=== PATIENT | male | born 1960 | race Caucasian/White ===

== ENCOUNTER 2016-09-15 19:46 | Inpatient (IN) | payer MEDICARE ==
--- NOTE | ~2016-09-15 | PA ---
Unit #: [id number] #: [id number] Patient: JUDAH HICKS [id number] [facility] [address] [place] [address] [id number] MR#: [id number] NAME: JUDAH HICKS ROOM: P201 Age: 56 Sex: M Admission Date: 09/15/2016 : 1960 Date of Assessment: Attending Physician: Wilder Calles M.D. Admitting Physician: Wilder Calles M.D. Primary Care Physician: Erik Doctor Not In System PSYCHIATRIC ASSESSMENT DATE OF SERVICE 09/16/2016. IDENTIFYING DATA Mr. Hicks is a 56-year-old single disabled white male, who is a resident of [place], [place], and was self-referred to the hospital on a voluntary basis with a blood alcohol level of 0.086. CHIEF COMPLAINT "I relapsed on alcohol." HISTORY OF PRESENT ILLNESS Mr. Hicks is a 56-year-old white male, who was self-referred to the hospital intoxicated and stated that he relapsed on alcohol and that he had drank three cases of beer in the past 2 days and reports that he is depressed and anxious and has been having suicidal thoughts and has a plan to overdose on his prescription medications. He reports that he is on disability due to mental health issues and has been at [facility] in [place] for the past 7 months until yesterday and reports that he is now homeless following the relapse and that he is struggling since the of his father and his sister and has poor social support system, multiple health problems, and fixed income and reports that he has a history of complicated detox in the past and therefore, he did not want to take any chance. He does report increasing depression, anxiety, restlessness, feelings of hopelessness and helplessness, poor energy level, psychomotor retardation, and suicidal ideation with a plan to overdose on alcohol and prescription medication as he stated "I want to drink myself to at this time and I have the pills to back that up." He was seen to be a danger to self and as such, a recommendation for inpatient level of care was made and the patient was transferred to us. SUBSTANCE ABUSE HISTORY The patient reports history of alcohol dependence and reports that he has been drinking a case of beer a day and has been drinking since he was 9 years old. He denies any other drug abuse. PAST PSYCHIATRIC HISTORY The patient has had a history of chemical dependency treatment across different facilities including at [facility], at [facility] twice, at [facility], as well as at [facility] and other facilities and currently has been living in a [facility] for the last 7 months and now he describes himself to be homeless. Unit #: [id number] #: [id number] Patient: JUDAH HICKS PAST MEDICAL HISTORY The patient's medical history is significant for hypertension, history of withdrawal seizures, neuropathy, and dyslipidemia. ALLERGIES No known medication allergies. PERSONAL AND SOCIAL HISTORY A 56-year-old white male, who reports that he is single, unemployed, and essentially homeless and has poor social support system. MENTAL STATUS EXAMINATION Middle-aged white male, who was casually dressed with fair personal hygiene, appears to be in no acute distress or discomfort. He was awake and alert on interaction with intact orientation to time, place, and person. His mood was anxious and depressed with a congruent affect. His speech was slow and restricted in content. His thought processes were disorganized with some looseness of associations and flight of ideas and suicidal ideations. His insight and judgment remain significantly impaired. DIAGNOSTIC IMPRESSION Psychiatric: Major depressive disorder, recurrent, moderate, without psychotic features and alcohol dependence, moderate, in acute withdrawals. Medical: Hypertension, history of withdrawal seizures, neuropathy, and dyslipidemia. Stressors: Moderate psychosocial stressors. TREATMENT PLAN 1. The patient has presented with a history of mood disorder and substance abuse and has been decompensating and will need inpatient hospitalization for detoxification, safety, and stabilization. We will start him back on his home medications and detox protocol. We will closely monitor for any worsening withdrawal symptoms. 2. Supportive therapy was provided to the patient. 3. Safe, structured, and nourishing environment will be provided. ESTIMATED LENGTH OF STAY 5 to 7 days. ABILITY TO HELP SELF Limited. WILLINGNESS TO HELP SELF The patient appears to be willing to help self. STRENGTHS 1. Communicative. 2. Cooperative. PROBLEMS 1. Chronic dysphoric symptoms. 2. Chronic chemical dependency. DISCHARGE CRITERIA This will be contingent upon the patient's ability to show resolution of his depression and anxiety and his ability to go through detox without having any significant withdrawal symptoms and his ability to stay safe to Unit #: [id number] #: [id number] Patient: JUDAH HICKS himself and others, particularly after discharge from the hospital. Dictated by... Daphney Zhao/cristobal TD: 09/16/2016 14:27 JOB #: [id number] PSYCHIATRIC ASSESSMENT X Wilder Calles MD PSYCHIATRIC ASSESSMENT
--- NOTE | ~2016-09-15 | DS ---
Unit #: [id number] #: [id number] Patient: JUDAH HICKS [id number] [facility] [address] [place] [address] [id number] I MR#: [id number] NAME: JUDAH HICKS ROOM: P201 Age: 56 Sex: M Admission Date: 09/15/2016 : 1960 Discharge Date: 09/25/2016 Attending Physician: Wilder Calles M.D. Primary Care Physician: Generic Doctor Not In System DISCHARGE SUMMARY IDENTIFYING DATA Mr. Hicks is a 56-year-old single disabled white male, who is a resident of [place], [place], and was self-referred to the hospital on a voluntary basis with a blood alcohol level of 0.086. DISCHARGE DIAGNOSES Psychiatric: Major depressive disorder, recurrent, moderate, without psychotic features; alcohol dependence, moderate and acute withdrawals. Medical: Hypertension, history of withdrawal seizures, neuropathy, dyslipidemia. Stressors: Moderate psychosocial stressors. HISTORY OF PRESENT ILLNESS Please see initial psychiatric evaluation for details. PAST PSYCHIATRIC HISTORY Please see initial psychiatric evaluation for details. PAST MEDICAL HISTORY Please see initial psychiatric evaluation for details. HOSPITAL COURSE The patient was admitted to the adult chemical dependency and psychiatric unit at [facility] and was oriented to the hospital environment. Routine p.r.n. medications were initiated, and he was started back on his home medications and alcohol detox protocol was initiated as well. He was seen to be anxious, withdrawn, though was polite and pleasant and cooperative with treatment recommendation and was taking the medications regularly and was tolerating them fairly well and was able to show a decent and therapeutic response and initially was interested in going to long-term chemical dependency rehab program and referral to [facility] in [place] was made, but he was not accepted there and then he decided that he just wants to go back to his detention house and wants to do intensive outpatient treatment program and as such, it was decided that he will be discharged home and will continue treatment on an outpatient basis. DISCHARGE MEDICATIONS BuSpar 15 mg t.i.d. for anxiety, Protonix 40 mg a day for acid reflux, Lipitor 20 mg at bedtime for dyslipidemia, Neurontin 600 mg t.i.d. for neuropathy, Zyprexa 2.5 mg b.i.d. for mood depression, Lexapro 20 mg a day for depression, Norvasc 5 mg a day for hypertension, Oretic 12.5 mg a day for hypertension. DISCHARGE CONDITION Unit #: [id number] #: [id number] Patient: JUDAH HICKS. PROGNOSIS Fair. Dictated by... Daphney Zhao/cristobal TD: 09/25/2016 07:42 JOB #: [id number] DISCHARGE SUMMARY Page 1 of 1 X Wilder Calles MD X DISCHARGE SUMMARY
--- NOTE | ~2016-09-15 | PN ---
Unit #: [id number] #: [id number] Patient: JUDAH HICKS [id number] [facility] [address] [place] [address] [id number] I MR#: [id number] NAME: JUDAH HICKS ROOM: P201 Age: 56 Sex: M Admission Date: 09/15/2016 : 1960 Attending Physician: Wilder Calles M.D. Admitting Physician: Wilder Calles M.D. Primary Care Physician: Erik Doctor Not In System [facility] PROGRESS NOTES DATE OF SERVICE: 09/17/2016 SUBJECTIVE Mr. Hicks is a 56-year-old white male who was seen today and chart was reviewed, and case was discussed with the staff. He has been anxious, withdrawn, and rather seclusive to himself. Meanwhile, he has been cooperative with treatment recommendation. He has been taking the medications and tolerating them fairly well with no reported side effects. MENTAL STATUS EXAMINATION Middle-aged white male who was casually dressed with fair personal hygiene, appears to be in no acute distress or discomfort. He was awake and alert on interaction with intact orientation. His mood was anxious with a congruent affect. He denies any suicidal or homicidal ideations. His insight and judgment remain slightly impaired. TREATMENT PLAN We will continue him on his current treatment protocol. We will monitor his response. Dictated by... Daphney Zhao/cristobal TD: 09/18/2016 01:31 JOB #: [id number] [facility] PROGRESS NOTES Page 1 of 1 X Wilder Calles MD PROGRESS NOTE
--- NOTE | ~2016-09-15 | PN ---
Unit #: [id number] #: [id number] Patient: JUDAH HICKS [id number] [facility] [address] [place] [address] [id number] MR#: [id number] NAME: JUDAH HICKS ROOM: P201 Age: 56 Sex: M Admission Date: 09/15/2016 : 1960 Attending Physician: Wilder Calles M.D. Admitting Physician: Wilder Calles M.D. Primary Care Physician: Generic Doctor Not In System [facility] PROGRESS NOTES DATE OF SERVICE 09/20/2016 DISCUSSION Mr. Hicks is a 56-year-old white male who was seen today. Chart was reviewed and case was discussed with the staff who reports the patient has been doing fairly well with no agitation or irritability and has been calm and cooperative with treatment recommendation and has been trying to get into long-term rehab level of care and has been referred to [facility] in [place] for long-term chemical dependence rehab level of care, and he reports that if he gets accepted he will be willing to go there. MENTAL STATUS EXAMINATION Middle-aged white male who is casually dressed with fair personal hygiene, appears to be in no acute distress or discomfort. He was awake and alert on interaction with intact orientation. His mood is anxious with congruent affect. His speech is slow and restricted in content. His thought processes were disorganized with some looseness of associations. His insight and judgment remain slightly impaired. TREATMENT PLAN 1. We will continue him on his current medications and treatment protocol. We will monitor his response to the medications and make further adjustments as needed. 2. We will continue to follow up. Dictated by... Daphney Zhao/girish TD: 09/21/2016 07:22 JOB #: [id number] Unit #: [id number] #: [id number] Patient: JUDAH HICKS PROGRESS NOTES Page 1 of 1 X Wilder Calles MD PROGRESS NOTE
--- NOTE | ~2016-09-15 | PN ---
Unit #: [id number] #: [id number] Patient: JUDAH HICKS [id number] [facility] [address] [place] [address] [id number] I MR#: [id number] NAME: JUDAH HICKS ROOM: P201 Age: 56 Sex: M Admission Date: 09/15/2016 : 1960 Attending Physician: Wilder Calles M.D. Admitting Physician: Wilder Calles M.D. Primary Care Physician: Erik Doctor Not In System [facility] PROGRESS NOTES DATE OF SERVICE: 09/24/2016 SUBJECTIVE Mr. Hicks is a 56-year-old white male who was seen today and chart was reviewed, and case was discussed with the staff. He has been anxious, withdrawn, though has not shown any agitation or irritability, and he has been cooperative with treatment recommendations as he has been taking medications and tolerating them fairly well with no reported side effects. MENTAL STATUS EXAMINATION Middle-aged white male who was casually dressed with fair personal hygiene, appears to be in no acute distress or discomfort. He was awake and alert with impaired attention and concentration. His mood was anxious with a congruent affect. He denies any suicidal or homicidal ideations. His insight and judgment remain fairly intact. TREATMENT PLAN 1. We will continue him on his current medications and treatment protocol. We will consider doing discharge planning tomorrow. 2. We will continue to follow up. Dictated by... Daphney Zhao/terryl TD: 09/24/2016 21:39 JOB #: [id number] [facility] PROGRESS NOTES Page 1 of 1 X Wilder Calles MD PROGRESS NOTE
--- NOTE | ~2016-09-15 | PN ---
Unit #: [id number] #: [id number] Patient: JUDAH HICKS [id number] [facility] [address] [place] [address] [id number] MR#: [id number] NAME: JUDAH HICKS ROOM: P201 Age: 56 Sex: M Admission Date: 09/15/2016 : 1960 Attending Physician: Wilder Calles M.D. Admitting Physician: Wilder Calles M.D. Primary Care Physician: Generic Doctor Not In System [facility] PROGRESS NOTES DATE 09/19/2016 DISCUSSION Mr. Hicks is a 56-year-old, white male who was seen today and chart was reviewed and case was discussed with the staff. He has been anxious, withdrawn and rather seclusive to himself. He has been cooperative with the treatment recommendations. He has been taking the medication and tolerating them fairly well. MENTAL STATUS EXAM Middle-aged Young white male who was casually dressed with fair personal hygiene, appears to be in no acute distress or discomfort. He was awake and alert on interaction with intact orientation. His mood was anxious with congruent affect. His speech was slow and goal directed. He denies any suicidal or homicidal ideation. Also, denies any auditory or visual hallucinations. His insight and judgement remains slightly impaired. TREATMENT PLAN 1. We will continue him on his current medications and treatment protocol. We will monitor his response to the medication and make further adjustments as needed. 2. We will continue to follow up. Dictated by... Daphney Zhao/pete TD: 09/20/2016 02:08 JOB #: [id number] Unit #: [id number] #: [id number] Patient: JUDAH HICKS PROGRESS NOTES Page 1 of 1 X Wilder Calles MD PROGRESS NOTE
--- NOTE | ~2016-09-15 | HP ---
Unit #: [id number] #: [id number] Patient: JUDAH HICKS [id number] [facility] [address] [place] [address] [id number] I MR#: [id number] NAME: JUDAH HICKS ROOM: P201 Age: 56 Sex: M Admission Date: 09/15/2016 : 1960 Attending Physician: Wilder Calles M.D. Admitting Physician: Wilder Calles M.D. Primary Care Physician: Erik Doctor Not In System HISTORY AND PHYSICAL History and physical completed on 09/16/2016. HISTORY OF PRESENT ILLNESS Judah is a 56-year-old male, admitted on 09/15/[address] [place] [address] for detox from alcohol. PAST MEDICAL HISTORY 1. Obesity. 2. Hypertension. 3. Gastroesophageal reflux disease. 4. Peripheral neuropathy. 5. Hyperlipidemia. 6. History of withdrawal seizures. PAST SURGICAL HISTORY None documented. SOCIAL HISTORY He smokes one pack of cigarettes daily. He drinks a case of beer daily, no illegal drug use. He is currently single and homeless. FAMILY HISTORY Noncontributory. REVIEW OF SYSTEMS CONSTITUTIONAL: No fever or chills. HEENT: Denies any sore throat, ear pain or runny nose. CARDIOVASCULAR: Denies chest pain, irregular heart rhythm or palpitations. CHEST: Denies shortness of breath or cough. No hemoptysis. GASTROINTESTINAL: Denies nausea, vomiting, diarrhea or chronic constipation. ENDOCRINE: Denies history of increased thirst or urination. No recent significant weight loss or gain. GENITOURINARY: Denies dysuria, frequency, or hematuria. SKIN: Denies any rashes. HEMATOLOGIC: Denies history of increased bleeding or bruising. MUSCULOSKELETAL: Denies any hot, swollen joints. No generalized muscle pain. NEUROLOGIC: Denies problems with vision or speech. No frequent, severe headaches. No numbness, tingling or weakness in any extremities. Denies loss of bladder or bowel control. CURRENT MEDICATIONS Unit #: [id number] #: [id number] Patient: JUDAH HICKS 1. Tizanidine 2. BuSpar 3. Omeprazole 4. Escitalopram 5. Losartan/HCTZ 6. Atorvastatin 7. Neurontin 8. Olanzapine ALLERGIES No known drug allergies. PHYSICAL EXAMINATION GENERAL: Alert, oriented, and in no acute distress. VITAL SIGNS: Blood pressure 156/87, heart rate 103, temperature 98.0. HEIGHT: 5 feet 6 inches. WEIGHT: 236 pounds. SKIN: Warm and dry without rash or lesion. HEENT: Normocephalic. TMs not viewed. Oral and nasal passages clear. Conjunctivae clear. PERRLA. EOMs intact. NECK: Supple without lymphadenopathy or thyromegaly. HEART: Regular rate and rhythm without murmur. LUNGS: Clear. ABDOMEN: Soft, nontender. : Not done. EXTREMITIES: No evidence of cyanosis, clubbing or edema. Moves all without focal deficit. NEUROLOGICAL: Grossly within normal limits. Cranial Nerves: II: Visual park are intact. III, IV AND : Extraocular movements are intact. Pupils are equal, round and reactive to light. V: Facial sensation is grossly normal. VII: Facial movements and expression are normal. VIII: Auditory acuity grossly intact. IX, X: Uvula is midline. Phonation is normal. XI: Patient shrugs shoulders and turns head normally. XII: Tongue protrudes in the midline. Sensory and Motor Function: Sensory and motor sensation is grossly normal. Motor: moves all extremities well. Coordination: Gait is normal. Deep Tendon Reflexes: Intact. IMPRESSION 1. Psychiatric admission. 2. Obesity. 3. Hypertension. 4. Gastroesophageal reflux disease. 5. Peripheral neuropathy. 6. Hyperlipidemia. 7. History of withdrawal seizures. RECOMMENDATIONS Psychiatric, per psychiatrist. MEDICAL I see no contraindications to participating in facility's activities. MEDICAL PROGNOSIS Good. MEDICAL CONDITION Unit #: [id number] #: [id number] Patient: JUDAH HICKS. Dictated by... Kylah Massey/gracia TD: 09/17/2016 08:08 JOB #: [id number] HISTORY AND PHYSICAL X FAINA TROY APRN X HISTORY AND PHYSICAL
--- NOTE | ~2016-09-15 | PN ---
Unit #: [id number] #: [id number] Patient: JUDAH HICKS [id number] [facility] [address] [place] [address] [id number] I MR#: [id number] NAME: JUDHA HICKS ROOM: P201 Age: 56 Sex: M Admission Date: 09/15/2016 : 1960 Attending Physician: Wilder Calles M.D. Admitting Physician: Wilder Calles M.D. Primary Care Physician: Generic Doctor Not In System [facility] PROGRESS NOTES DATE OF SERVICE: 09/23/2016 SUBJECTIVE Mr. Hicks is a 56-year-old white male who was seen today and chart was reviewed, and case was discussed with the staff. He has been doing fairly well outpatient treatment program after discharged from the hospital and continued treatment. MENTAL STATUS EXAMINATION Middle-aged white male who was casually dressed with fair personal hygiene, appears to be in no acute distress or discomfort. He was awake and alert with intact orientation. His mood was anxious with a congruent affect. He denies any suicidal or homicidal ideations. His insight and judgment remain fairly intact. TREATMENT PLAN 1. We will continue him on his current treatment protocol. We will monitor his response to medications and make further adjustments as needed. 2. We will continue to follow up. Dictated by... Daphney Zhao/terryl TD: 09/24/2016 21:50 JOB #: [id number] [facility] PROGRESS NOTES Page 1 of 1 X Wilder Calles MD PROGRESS NOTE
--- NOTE | ~2016-09-15 | PN ---
Unit #: [id number] #: [id number] Patient: JUDAH HICKS [id number] [facility] [address] [place] [address] [id number] I MR#: [id number] NAME: JUDAH HICKS ROOM: P201 Age: 56 Sex: M Admission Date: 09/15/2016 : 1960 Attending Physician: Wilder Calles M.D. Admitting Physician: Wilder Calles M.D. Primary Care Physician: Erik Doctor Not In System [facility] PROGRESS NOTES DATE 09/21/2016 DISCUSSION Mr. Hicks is a 56-year-old white male who was seen today and chart was reviewed and case was discussed with the staff. He has been anxious, withdrawn though has not shown any agitation, irritability and has been cooperative with treatment recommendations as he has taking medications and tolerating them fairly well with no reported side effects. MENTAL STATUS EXAMINATION Middle-aged white male who was casually dressed with fair personal hygiene and appears to be in no acute distress or discomfort. He was awake and alert with intact orientation. His mood was anxious with congruent affect. He denies any suicidal or homicidal ideations. His insight and judgement remains slightly impaired. TREATMENT PLAN 1. Will continue on his current medications and treatment protocol. Will monitor his response to the medications and make further adjustments as needed. 2. Will continue to follow up. Dictated by... Daphney Zhao/chris TD: 09/21/2016 18:02 JOB #: [id number] Unit #: [id number] #: [id number] Patient: JUDAH HICKS PROGRESS NOTES Page 1 of 1 X Wilder Calles MD X PROGRESS NOTE
--- NOTE | ~2016-09-15 | PN ---
Unit #: [id number] #: [id number] Patient: JUDAH HICKS [id number] [facility] [address] [place] [address] [id number] I MR#: [id number] NAME: JUDAH HICKS ROOM: P201 Age: 56 Sex: M Admission Date: 09/15/2016 : 1960 Attending Physician: Wilder Calles M.D. Admitting Physician: Wilder Calles M.D. Primary Care Physician: Generic Doctor Not In System [facility] PROGRESS NOTES DATE OF SERVICE 09/18/2016 DISCUSSION Mr. Hicks is a 56-year-old white male who was seen today. Chart was reviewed and case was discussed with staff. He remains anxious, withdrawn, depressed, and rather seclusive to himself and has not been interacting or socializing very much. Meanwhile, he has been taking the medications and tolerating them fairly well. MENTAL STATUS EXAMINATION Middle-aged white male who is casually dressed with fair personal hygiene, appears to be in no acute distress or discomfort. The patient was awake and alert on interaction with intact orientation. His mood is anxious with congruent affect. Speech is slow and restricted in content. His thought processes were disorganized with some looseness of associations. His insight and judgment remain significantly impaired. TREATMENT PLAN 1. We will continue him on his current medications and treatment protocol. We will monitor his response to the medications and make further adjustments as needed. 2. We will continue to follow up. Dictated by... Wilder Calles M.D. IAA/claritag TD: 09/19/2016 07:06 JOB #: [id number] Unit #: [id number] #: [id number] Patient: JUDAH HICKS PROGRESS NOTES Page 1 of 1 X Wilder Calles MD PROGRESS NOTE
--- NOTE | ~2016-09-15 | PN ---
Unit #: [id number] #: [id number] Patient: JUDAH HICKS [id number] [facility] [address] [place] [address] [id number] I MR#: [id number] NAME: JUDAH HICKS ROOM: P201 Age: 56 Sex: M Admission Date: 09/15/2016 : 1960 Attending Physician: Wilder Calles M.D. Admitting Physician: Wilder Calles M.D. Primary Care Physician: Generic Doctor Not In System [facility] PROGRESS NOTES DATE 09/22/2016 DISCUSSION Mr. Hicks is a 56-year-old, white male who was seen today and chart was reviewed and case was discussed with the staff. He has been anxious, withdrawn though has not shown any agitation, irritability treatment recommendations. MENTAL STATUS EXAM Middle-aged white male who was casually dressed with fair personal hygiene, appears to be in no acute distress or discomfort. He was awake and alert on interaction with intact orientation. His mood was anxious with congruent affect. He denies any suicidal or homicidal ideation. His insight and judgement remains slightly impaired. TREATMENT PLAN 1. We will continue him on his current medications and treatment protocol. We will monitor his response to medication and make further adjustments as needed. 2. We will continue to follow up. Dictated by... Daphney Zhao/pete TD: 09/24/2016 03:09 JOB #: [id number] Unit #: [id number] #: [id number] Patient: JUDAH HICKS PROGRESS NOTES Page 1 of 1 X Wilder Calles MD PROGRESS NOTE
[2016-09-16 12:51] LABS: BASOPHIL# 0.1 X10e3 (0-0.3); BASOPHIL% 0.9 % (0-2.5); EOSINOPHIL# 0.1 X10e3 (0-0.7); EOSINOPHIL% 1.2 % (0.0-7.0); HEMOGLOBIN 15.4 gm/dL (13.0-16.0); LYMPHOCYTE# 1.5 X10e3 (1.0-3.5); LYMPHOCYTE% 16.7 % (17.0-45.0); MEAN CORPUSCULAR HEMOGLOBIN 28.7 PG (28-34); MEAN CORPUSCULAR HGB CONC 33.4 g/dL (30-36); MEAN PLATELET VOLUME 7.2 FL (6.5-11.5); MONOCYTE# 0.7 X10e3 (0-1.0); MONOCYTE% 7.6 % (3.0-12.0); NEUTROPHIL# 6.8 X10e3 (1.5-7.1); NEUTROPHIL% 73.6 % (40-75); PLATELET COUNT 284 X10e3 (140-420); RED BLOOD COUNT 5.35 X10e (3.90-5.60); WHITE BLOOD COUNT 9.2 X10e3 (4.0-10.5)
[2016-09-16 12:52] LABS: DIFF IND NO
[2016-09-16 13:39] LABS: ALBUMIN SERUM 3.6 g/dL (3.5-5.0); ALKALINE PHOSPHATASE 82 U/L (32-92); ALT (SGPT) 31 U/L (10-40); AST (SGOT) 35 U/L (10-42); BILIRUBIN,TOTAL 0.5 mg/dL (0.2-2.0); BLOOD UREA NITROGEN 16 mg/dL (9-23); BUN/CREATININE RATIO 13.33; CALCIUM SERUM 8.8 mg/dL (8.4-10.2); CARBON DIOXIDE 28 mmol/L (22-31); CHLORIDE 105 mmol/L (100-111); CREATININE SERUM 1.2 mg/dL (0.6-1.4); GLOM FILT RATE Estimated ABOVE60 mL/min (>60); GLUCOSE FASTING 99 mg/dL (70-110); POTASSIUM 4.4 mmol/L (3.5-5.1); PROTEIN TOTAL SERUM 6.5 g/dL (6.0-8.3); SODIUM 142 mmol/L (135-145)
[2016-09-16 13:48] LABS: THYROID STIMULATING HORMONE 0.27 uIU/ml (0.34-5.60)
[2016-09-16 13:55] LABS: FREE THYROXIN (T4) 0.66 ng/dL (0.58-1.64)
[2016-09-17 09:40] LABS: URINE APPEARANCE CLEAR; URINE BILIRUBIN NEG (NEG); URINE BLOOD NEG (NEG); URINE COLOR DK YELLOW; URINE GLUCOSE NEG (NEG); URINE KETONE NEG (NEG); URINE LEUKOCYTE ESTERASE NEG (NEG); URINE NITRATE NEG (NEG); URINE PROTEIN 2+ (NEG); URINE SPECIFIC GRAVITY 1.024 (1.003-1.035); URINE UROBILINOGEN 0.2 MG/DL (NEG)
[2016-09-17 09:44] LABS: URBCS1 AUWI 0-2 /[HPF] (0-2); URINE BACTERIA AUWI NEG (NEGATIVE); URINE SQUAMOUS EPITHELIAL CELL OCC /[HPF]
[2016-09-17 10:20] LABS: AMPHETAMINE NEG (NEG); BARBITURATES NEG (NEG); BENZODIAZEPINES POS (NEG); COCAINE NEG (NEG); MARIJUANA NEG (NEG); OPIATES NEG (NEG); TRICYCLIC ANTIDEPRESSANTS POS (NEG); U METHADONE NEG (NEG)
== END 2016-09-25 10:00 | disposition home or self-care (01) | DRG 885 ==
LOC: P2S 19:46
PROVIDERS: Psychiatry & Neurology Psychiatry
PROC: HZ2ZZZZ Detoxification Services for Substance Abuse Treatment (ICD-10-PCS; principal; 2016-09-15)
DX: F33.1 Major depressive disorder, recurrent, moderate (principal); G62.9 Polyneuropathy, unspecified; I10 Essential (primary) hypertension; F10.230 Alcohol dependence with withdrawal, uncomplicated; E78.5 Hyperlipidemia, unspecified; Z59.0 Homelessness; E66.9 Obesity, unspecified; K21.9 Gastro-esophageal reflux disease without esophagitis; Z68.38 Body mass index [BMI] 38.0-38.9, adult
CPT/HCPCS: 80053; 80307; 81003; 84439; 84443; 85025; 86592